=== PATIENT | female | born 1995 | race Caucasian/White ===

== ENCOUNTER 2022-03-28 12:21 | Inpatient (IN) | payer BC ==
[~2022-03-28] VITALS: Ht 175.3 cm; Wt 83.0 kg
--- NOTE | 2022-03-28 14:40 | NUR ---
covid swab collected sent to the lab
--- NOTE | 2022-03-29 07:58 | PR ---
[facility] [address] [place], [place] [address] Signed PP Progress Notes Datetime Report Generated by CPN: 03/29/2022 07:58 SUBJECTIVE: [id number] Pain: Within Normal Limits Pain Comments: feeling better Vital Signs: [id number] Vital Signs: Reviewed; Within Normal Limits Cardiovascular: Not Done Respiratory: Not Done Abdomen/Uterus: Abnormal Lochia: Normal Vulva/Perineum: Not Done Extremities: Normal Exam Comments: Fundus firm, NT @ U-1 IMPRESSION/PLAN/PROCEDURES: [id number] Impression: Normal Progression Other Impression: hx pp hemorrhage Progress Notes: No evidence of ongoing bleeding since her last episode. Will go slow with ambulation and recheck H/H at 1200. Signing Physician: Luna Del Real MD Copies: ~ *Electronically Signed* 03/29/22 0758 LUNA DEL REAL MD PATIENT NAME: YOSELYN BLANK PROGRESS NOTE DATE OF : 89 PHYSICIAN: LUNA DEL REAL MD RPT #: [id number] REPORT IS CONFIDENTIAL AND NOT TO BE RELEASED WITHOUT AUTHORIZATION
--- NOTE | 2022-03-30 09:42 | PR ---
[facility] [address] [place], [place] [address] Signed PP Progress Notes Datetime Report Generated by CPN: 03/30/2022 09:42 SUBJECTIVE: [id number] Pain: Within Normal Limits Pain Comments: ambulating w/o difficulty Vital Signs: [id number] Vital Signs: Reviewed; Within Normal Limits Cardiovascular: Not Done Respiratory: Not Done Abdomen/Uterus: Abnormal Lochia: Normal Vulva/Perineum: Not Done Breasts: Not Done CVA Tenderness: Not Done Extremities: Abnormal Incision: Not Applicable Progress: Normal Exam Comments: Fundus firm, NT @ U-1. 1+ LE edema 03/29 1200 H/H 10.6/31.6, WBC 14, plat 238k 03/30 0600 H/H 9.1/26.6, WBC 10.4, plat 210k IMPRESSION/PLAN/PROCEDURES: [id number] Impression: Normal Progression Other Impression: hx pp hemorrhage Plan: Discharge Procedures: Rubella Progress Notes: Doing well. She desires D/C. She is tolerating her anemia well. Signing Physician: Luna Del Real MD Copies: ~ *Electronically Signed* 03/30/22 0942 LUNA DEL REAL MD PATIENT NAME: YOSELYN BLANK PROGRESS NOTE DATE OF : 96 PHYSICIAN: LUNA DEL REAL MD RPT #: [id number] REPORT IS CONFIDENTIAL AND NOT TO BE RELEASED WITHOUT AUTHORIZATION
== END 2022-03-30 11:00 | disposition home or self-care (01) | DRG 806 ==
LOC: FBCO 12:21 → FBC 14:00
PROVIDERS: ADMIT Obstetrics & Gynecology; ATTEND Obstetrics & Gynecology
PROC: 10E0XZZ Delivery of Products of Conception, External Approach (ICD-10-PCS; principal; 2022-03-28)
PROC: 0KQM0ZZ Repair Perineum Muscle, Open Approach (ICD-10-PCS; 2022-03-28)
PROC: 3E0P7VZ Introduction of Hormone into Female Reproductive, Via Natural or Artificial Opening (ICD-10-PCS; 2022-03-28)
PROC: 10907ZC Drainage of Amniotic Fluid, Therapeutic from Products of Conception, Via Natural or Artificial Opening (ICD-10-PCS; 2022-03-28)
PROC: 00HU33Z Insertion of Infusion Device into Spinal Canal, Percutaneous Approach (ICD-10-PCS; 2022-03-28)
PROC: 3E0R3BZ Introduction of Anesthetic Agent into Spinal Canal, Percutaneous Approach (ICD-10-PCS; 2022-03-28)
DX: O15.1 Eclampsia complicating labor (principal); O72.1 Other immediate postpartum hemorrhage; Z37.0 Single live birth; O70.1 Second degree perineal laceration during delivery; Z67.40 Type O blood, Rh positive; Z20.822 Contact with and (suspected) exposure to COVID-19; Z3A.39 39 weeks gestation of pregnancy
CPT/HCPCS: 36415; 59025; 82565; 82570; 84112; 84156; 84450; 84520; 84550; 85027; 86850; 86900; 86901; 87502; 90707; A9270; C9803; G0463; J2405; J2590; J7121; U0003